=== PATIENT | male | born 1950 | race Caucasian/White ===

== ENCOUNTER 2022-12-09 08:32 | Day surgery (SDC) | payer MEDICARE, BC, SELFPAY ==
[2022-12-09] VITALS (35 sets, daily range): BP systolic 88–160; BP diastolic 61–99; PULSE 42–70; RESP 16–20; TEMP 35.9–36.4; O2SAT 93–99; BMI 24.6
[2022-12-09] MEDS: LACTATED RINGERS 1000 ML 1,000 ML 100 ML IV ×2 (09:20→13:27)
[2022-12-09] MEDS: SODIUM CHLORIDE 0.9 % (FLUSH) 10 ML SYRINGE IVF (09:32)
[2022-12-09] MEDS: OXYCODONE (CR) 10 MG TAB.ER.12H PO (10:45)
[2022-12-09] MEDS: ACETAMINOPHEN 500 MG TABLET 1000 MG PO ×2 (10:45→17:51)
[2022-12-09] MEDS: CELECOXIB 200 MG CAPSULE PO ×2 (10:45→21:21)
[2022-12-09] MEDS: fentaNYL 100 MCG/2 ML inj IVP (10:53)
[2022-12-09] MEDS: MIDAZOLAM HCL 1 MG/ML inj IVP (10:53)
--- NOTE | 2022-12-09 11:06 | SUR.PREOP ---
TIME?OUT:?1050 PT/RN/MDA?VERIFICATION?OF?SURGICAL?SITE Left Knee,?PROCEDURE Nerve Block,?AND?CONSENT OBTAINED?PRIOR?TO?INVASIVE?PROCEDURE.
--- NOTE | 2022-12-09 11:34 | P.NB_ITS ---
Nerve Block Nerve Block Time Seen by Provider: 11:59 Date Seen: 12/09/22 Type of block requested by surgeon for post-operative analgesia: adductor canal Side: left Time out performed: Yes Verification of patient name: Yes Verification of date of : Yes Site marking: site marked Name of person performing procedure: John Continuous monitoring Was continuous monitoring of O2 sat, B/P, phototypesetting equipment monitor, recorded every 15 minutes?: Yes Procedure Checklist: sterile prep, needles and gloves Ultrasound guided. Images saved: Yes Medications given in 5ml increments after negative aspiration: Ropivicaine %: 0.5 mL: 20 Needle gauge: 20 Decadron (mg): 10 Precedex (mcg): 25 Patient tolerated procedure well: Yes Additional comments: Needle noted adjacent to nerve Block Charges Block Charge (with Pro Fee): Femoral Nerve Use of Ultrasound Machine for Block: Yes- US Guidance/pain block
--- NOTE | 2022-12-09 11:35 | W.PM.NB ---
Nerve Block Nerve Block Time Seen by Provider: 11:59 Date Seen: 12/09/22 Type of block requested by surgeon for post-operative analgesia: geniculars Side: left Time out performed: Yes Verification of patient name: Yes Verification of date of : Yes Site marking: site marked Name of person performing procedure: John Continuous monitoring Was continuous monitoring of O2 sat, B/P, compliance monitor, recorded every 15 minutes?: Yes Procedure Checklist: sterile prep, needles and gloves Medications given in 5ml increments after negative aspiration: Ropivicaine %: 0.5 mL: 9 Needle gauge: 25 Patient tolerated procedure well: Yes Block Charges Block Charge (with Pro Fee): Genicular Nerve Block Use of Ultrasound Machine for Block: No
[2022-12-09] MEDS: CEFAZOLIN 2 GM INJ IVP (11:40)
[2022-12-09] MEDS: TRANEXAMIC ACID 100 MG/ML INJ 1000 MG IV (11:42)
--- NOTE | 2022-12-09 12:56 | CRLHL7_ITS ---
For Patients: As a result of the Cures Act, medical imaging exams and procedure reports are released immediately into your electronic medical record. You may view this report before your referring provider. If you have questions, please contact your health care provider. Indication: POST OP TKA LEFT KNEE Technique: Two views left knee Findings/Impression: Hardware from a left total knee arthroplasty is in satisfactory position. Bone alignment is normal. No sign of acute fracture. Postop changes are within normal limits. Dictated by Stephon Durham MD @ 12/10/2022 8:25:45 AM (Electronically Signed)
--- NOTE | 2022-12-09 12:58 | PM.ORPRC ---
Procedure Note Date of procedure: 12/09/22 Procedure: PREOPERATIVE DIAGNOSIS: Left knee osteoarthritis POSTOPERATIVE DIAGNOSIS: Left knee osteoarthritis NAME OF OPERATION: Left total knee arthroplasty SURGEON: Francois Siddiqi MD SALAD MAKER: Katherine Zhong PA-C ANESTHESIA: Spinal ESTIMATED BLOOD LOSS: 0 mL COMPLICATIONS: None SPECIMENS: None DRAINS: None PREOPERATIVE ANTIBIOTICS: Ancef 2 grams IMPLANTS: 1. J&J Attune # 8 posterior stabilized femur 2. # 8 fixed-bearing tibia 3. # 8 posterior stabilized, 5 mm fixed-bearing polyethylene 4. 41 patella INDICATIONS: The patient is a 72-year-old with a longstanding history of severe, unrelenting left knee pain secondary to end-stage (grade IV) left knee osteoarthritis. Despite appropriate nonoperative management, including activity modification, anti-inflammatories, lgjl-jmu-veljbck pain medication, bracing, physical therapy, and injections they continue to have pain and disability. Operative intervention was offered. The risks, benefits and expected outcomes were discussed in detail. These included but were not limited to: Infection, bleeding, injury to blood vessel or nerve, venous thromboembolism. All questions were answered to their satisfaction. Use of an ice cream freezer assistant was necessary throughout the case for patient positioning and safety, soft tissue retraction, and closure. PROCEDURE: Spinal anesthesia was administered. The patient was placed supine on the operating table. The ice cream freezer assistant made sure the patient was positioned appropriately. The lower extremity was prepped and draped in the usual sterile fashion. The limb was exsanguinated with the Elia bandage. The pneumatic tourniquet was inflated to 300 mmHg. A standard anterior incision was made with the knee in flexion. Subcutaneous dissection was sharply taken through fascial layer #1. Full-thickness medial and lateral flaps were elevated. The ice cream freezer assistant retracted the soft tissues and protected them throughout the case. A standard medial parapatellar approach was made. The patella was everted. The infrapatellar fat pad was preserved. The menisci and cruciate ligaments were sharply d?brided. Marginal osteophytes were d?brided with the rongeur. The drill was used to penetrate the femoral canal. The canal was aspirated and irrigated with pulse lavage. The intramedullary femoral guide was placed for a 5-degree valgus cut, removing 10 mm off the distal femur. The saw was used to make the cut. Whitesides line and the trans epicondylar axis were marked. The femoral sizing guide was pinned onto the distal femur. Three degrees of external rotation nicely parallels the transepicondylar axis. Pins were placed for posterior referencing. The four-in-one cutting guide was pinned onto the distal femur. The anterior, posterior, and chamfer cuts were made. The ice cream freezer assistant protected the collateral ligaments. The box cutting guide was pinned. The box cuts were made. The boxed trial was placed and was an excellent fit. Drill holes for the lugs were made. Attention was then turned to the proximal tibia. The extramedullary tibial guide was placed for a neutral varus/valgus cut with 5 degrees of posterior slope, removing 1 mm based off the medial tibial surface. The ice cream freezer assistant protected the collateral ligaments and the neurovascular bundle. The saw was used to make the cut. Trial components were placed. The knee was nicely balanced in both flexion and extension. The trial components were removed. The tray was placed in appropriate rotation, parallel to our tibial cutting pins. It was pinned by the ice cream freezer assistant and the drill and the punch were used. The tray was removed. The punch was used again. We placed a bone plug in the femoral canal. Attention was then turned to the patella. [place] patellar thickness was 22 mm. The lobster claw resection guide was used with the 9.5 mm jami. The saw was used to make the cut. Drill holes were made by the ice cream freezer assistant. The trial was placed and was an excellent fit. Cancellous surfaces were irrigated with pulse lavage and thoroughly dried by the ice cream freezer assistant. We cemented the tibial component, then the femoral component. We impacted the 5 mm polyethylene onto the tibial tray. The knee was brought into full extension. We then cemented the patellar component. Excessive cement was removed. The cement was allowed to harden. The knee was taken through a range of motion and was found to be nicely balanced in both flexion and extension. The patella tracks centrally. The ice cream freezer assistant did a three minute dilute Betadine solution soak. The ice cream freezer assistant irrigated the wound with 3 liters of normal saline via pulse lavage. The ice cream freezer assistant reapproximated the extensor mechanism with #1 Vicryl in an interrupted aomsyh-qu-tcaxs fashion. The ice cream freezer assistant then ran the extensor mechanism with a #1 PDO Stratafix. The ice cream freezer assistant closed the subcutaneous tissues with a 3-0 Stratafix and the skin with a running 3-0 Stratafix in a subcuticular fashion. Glue was used to seal the skin. The ice cream freezer assistant placed a dry dressing, ELENA stocking, and Polar Care. Sponge and needle counts were correct x2. The patient tolerated the procedure well. There were no apparent complications. They were carefully transferred to the hospital bed and taken to the postanesthesia care unit in satisfactory condition. PLAN: The patient will be mobilized with physical therapy. Aspirin will be used for DVT prophylaxis. They will be discharged to home once medically appropriate.
--- NOTE | 2022-12-09 13:40 | W.ANESCHARGE ---
Anesthesia Charges Start Date/Time Anesthesia Start Date: 12/09/22 Anesthesia Start Time: 11:30 Stop Date/Time Anesthesia Stop Date: 12/09/22 Anesthesia Stop Time: 13:39 Summary Emergency: No Extremes of Age: Over 68-CPT 61679
--- NOTE | 2022-12-09 13:54 | W.ANESCHARGE ---
Anesthesia Charges Start Date/Time Anesthesia Start Date: 12/09/22 Anesthesia Start Time: 11:30 Stop Date/Time Anesthesia Stop Date: 12/09/22 Anesthesia Stop Time: 13:39 Summary Emergency: No Extremes of Age: Over 68-CPT 37684
--- NOTE | 2022-12-09 14:42 | PM.IMCN1 ---
Date of Consult Consult date: 12/09/22 Primary Care Provider: Franco Kruger MD Consult Narrative Reason for consult: Medical management of comorbidities Narrative: Rayshawn Amador is a 72 year old male who presented to the hospital today for an elective L TKA. There were no surgical or anesthetic complications noted during procedure. Patient's H&P reviewed, PCP is Dr. Kruger. Past medical history significant for: Essential hypertension, hyperlipidemia, small ascending aortic dilatation on recent TTE. Patient is followed by Dr. Solomon of Cardiology as an outpatient. History of blood clots: No. Postoperative ppx with ASA per Orthopedic Surgery. Postoperative plan: Home with , lives locally. Patient is a nonsmoker, rare alcohol drinker. Retired from manufacturing. Review of Systems Status of ROS: Reports: 10 or more systems reviewed and unremarkable except as noted in History and below PFSH PFS Medical History (Updated 12/09/22 @ 14:53 by Ban Barillas MD) Enlarged aorta High cholesterol Hypertension Laceration of scalp Lumbago Peyronie disease Surgical History (Updated 12/09/22 @ 14:50 by Ban Barillas MD) History of tonsillectomy No significant past surgical history Status post left knee replacement (12/09/22) Social History Smoking Status: Never smoker Do you use any of these nicotine containing products: None How often do you have a drink containing alcohol: 2-3 times a week Alcohol type: beer How many standard drinks containing alcohol do you have on a typical day: 1 or 2 How often do you have six or more drinks on one occasion: Never AUDIT-C Alcohol total score: 3 Non-prescribed substance use: denies use Caffeine: Yes (coffee 5-6 cups per day) Meds Home Medications and Allergies Home Medications Medication Instructions Recorded Confirmed Type atorvastatin 40 mg tablet 40 mg PO HS 09/01/22 12/09/22 History lisinopril 10 mg tablet 10 mg PO DAILY 09/01/22 12/09/22 History multivitamin (Daily Multi-Vitamin 1 tab PO DAILY 12/01/22 12/09/22 History tablet) omega 9-rkg-cjs-fish oil 1,000 mg 1 cap PO TID 12/01/22 12/09/22 History (120 mg-180 mg) capsule (Fish Oil) Allergies Allergy/AdvReac Type Severity Reaction Status Date / Time No Known Drug Allergies Allergy Verified 12/09/22 08:46 Exam Narrative: Exam Narrative: GEN: Alert HEENT: EOMIs bilaterally, no scleral icterus CV: RRR, No concerning murmurs, rubs, or gallops R: LCTA bilaterally without concerning wheezing, rales, or rhonchi Skin: No concerning skin lesions or rashes on exposed skin Neuro: Nonfocal Psych: Appropriate Const: Vital Signs, click to edit/add: Vital Signs - 24 hr 12/09/22 09:02 12/09/22 10:50 12/09/22 10:55 Temperature 97.6 F Pulse Rate 66 62 60 Pulse Rate [Right Pulse Oximeter] Respiratory Rate 20 20 20 Blood Pressure 160/94 H 151/93 H 149/91 H Blood Pressure [Le ft Arm] Pulse Oximetry 98 99 99 Oxygen Delivery Me thod Room Air Nasal Cannula Nasal Cannula Oxygen Flow Rate 2 2 12/09/22 11:00 12/09/22 13:43 12/09/22 13:36 Temperature Pulse Rate 60 52 L Pulse Rate [Right Pulse Oximeter] Respiratory Rate 20 Blood Pressure 147/90 H Blood Pressure [Le ft Arm] Pulse Oximetry 99 96 Oxygen Delivery Me thod Nasal Cannula Room Air Oxygen Flow Rate 2 12/09/22 13:38 12/09/22 13:39 12/09/22 13:40 Temperature Pulse Rate 50 L 50 L 47 L Pulse Rate [Right Pulse Oximeter] Respiratory Rate Blood Pressure 88/61 L Blood Pressure [Le ft Arm] Pulse Oximetry 93 94 95 Oxygen Delivery Me thod Oxygen Flow Rate 12/09/22 13:41 12/09/22 13:42 12/09/22 13:44 Temperature Pulse Rate 47 L 49 L 50 L Pulse Rate [Right Pulse Oximeter] Respiratory Rate Blood Pressure 97/64 Blood Pressure [Le ft Arm] Pulse Oximetry 94 95 94 Oxygen Delivery Me thod Oxygen Flow Rate 12/09/22 13:46 12/09/22 13:47 12/09/22 13:48 Temperature Pulse Rate 48 L 48 L 48 L Pulse Rate [Right Pulse Oximeter] Respiratory Rate Blood Pressure 103/69 Blood Pressure [Le ft Arm] Pulse Oximetry 95 94 94 Oxygen Delivery Me thod Oxygen Flow Rate 12/09/22 13:50 12/09/22 13:51 12/09/22 13:52 Temperature Pulse Rate 62 56 L 44 L Pulse Rate [Right Pulse Oximeter] Respiratory Rate Blood Pressure 116/69 Blood Pressure [Le ft Arm] Pulse Oximetry 96 96 97 Oxygen Delivery Me thod Oxygen Flow Rate 12/09/22 13:54 12/09/22 14:28 12/09/22 14:28 Temperature 96.6 F L Pulse Rate 55 L Pulse Rate [Right Pulse Oximeter] 48 L Respiratory Rate 18 Blood Pressure Blood Pressure [Le ft Arm] 123/74 Pulse Oximetry 94 98 98 Oxygen Delivery Me thod Room Air Oxygen Flow Rate 12/09/22 14:33 12/09/22 14:15 12/09/22 14:15 Temperature 96.6 F L 96.6 F L Pulse Rate 55 L Pulse Rate [Right Pulse Oximeter] 49 L 48 L Respiratory Rate 18 18 18 Blood Pressure Blood Pressure [Le ft Arm] 138/82 123/74 138/82 Pulse Oximetry 97 98 Oxygen Delivery Me thod Room Air Room Air Room Air Oxygen Flow Rate 2 2 Assessment and Plan Assessment and plan (1) Status post left knee replacement: Problem comment: - 12/09/2022, Dr. Siddiqi Status: Acute (2) High cholesterol: Problem comment: - on statin, continue this postoperatively Status: Acute (3) Hypertension: Problem comment: - on lisinopril, continue this postoperatively Status: Acute (4) Enlarged aorta: Problem comment: - dilated on outpatient TTE - follows with Dr. Solomon as an outpatient, Blood Pressure management and repeat TTE 2023 recommended Status: Acute Assessment and Plan: - per above - pain management and prophylaxis per Orthopedic Surgery team - anticipate routine postoperative course with therapies and d/c home tomorrow
[2022-12-09] MEDS: CEFAZOLIN 1 GM in 0.9 % SODIUM CHLORIDE Mini-bag 100 ML IVPB (17:52)
--- NOTE | 2022-12-09 18:36 | PC.NURSE ---
End of shift. Pt has been pleasant. pain 0-3 and he got Po Tylenol with relief. he is up with 1 assist walker and GB. dressing is C/D/I cryo cuff to the knee. he is eating and drinking, no void so far. IV is patent. IS - 1999. teds and plexi are on. he is a fall risk and alarms are on. VSS.
[2022-12-09] MEDS: ASPIRIN 81 MG TABLET EC PO (21:21)
[2022-12-09] MEDS: SENNOSIDES 1 TAB TABLET 2 TAB PO (21:21)
--- NOTE | 2022-12-09 21:57 | PC.NURSE ---
19-23: Pt doing great post op only issue is voided 50cc, bladder scanned for 812, pt refused catheterization, pt wants us to wait until midnight and if unable to void will straight cath, will hold off narcotics at the moment, pain controlled 02/04, iv sl, po adeq.
[2022-12-10] MEDS: ACETAMINOPHEN 500 MG TABLET 1000 MG PO ×3 (00:12→12:25)
[2022-12-10] MEDS: CEFAZOLIN 1 GM in 0.9 % SODIUM CHLORIDE Mini-bag 100 ML IVPB ×2 (02:34→11:21)
[2022-12-10 02:50] VITALS: BP 126/68; PULSE 62; RESP 18; TEMP 36.4; O2SAT 95
[2022-12-10] MEDS: OXYCODONE 5 MG TABLET PO ×2 (06:31→12:25)
[2022-12-10 07:00] VITALS: BP 145/76; PULSE 55; RESP 16; TEMP 36.4; O2SAT 98
[2022-12-10 07:02] LABS: Hematocrit 37.8 % (37.0-53.0); Hemoglobin* 13.1 gm/dL (13.5-17.5); Immature Granulocytes Abs Auto 0.01 K/uL (0.00-0.30); Immature Granulocytes Pct Auto 0.1 %; Lymphocytes Percent Auto 7.4 % (20-44); Mean Corpuscular HGB Conc 35 gm/dL (32-36); Mean Corpuscular Hemoglobin 30 pg (26-34); Mean Corpuscular Volume 87 fL (80-100); Neutrophils Percent Auto 84.5 % (42.0-72.0); Platelet Count* 243 K/uL (140-440); RDW Coefficient of Variation % 12.9 % (11.5-15.5); Red Blood Count 4.35 m/uL (4.30-5.90); White Blood Count* 10.27 K/uL (4.50-11.00)
[2022-12-10 07:09] LABS: Slide Review Reflex No
[2022-12-10 07:19] LABS: Prothrombin Time 14.8 Seconds
[2022-12-10 07:22] LABS: Potassium* 4.3 mmol/L (3.6-5.1); Sodium* 138 mmol/L (135-149)
[2022-12-10 07:25] LABS: Blood Urea Nitrogen* 17 mg/dL (7-30); Creatinine* 0.7 mg/dL (0.5-1.5); Estimated Glomerular Filt Rate 97 ml/min
--- NOTE | 2022-12-10 08:26 | PM.ORPN ---
Subjective Subjective Time Seen by Provider: 08:05 Date Seen: 12/10/22 Principal diagnosis: Day 1 s/p left total knee arthroplasty Interval history: Rayshawn is doing well this morning and is resting comfortably in his recliner. Patient c/o mild left knee pain worse at night. Pain is well managed with current scheduled and PRN oral pain medications and ice. Denies: fever, chills, chest pain, SOB, numbness/tingling distally. Also c/o trouble sleeping. Patient has not yet been seen by PT/OT. Patient feels ready to be discharged to home later this afternoon. No acute events over night. Ortho Exam Narrative Exam Narrative: Incision/Dressing: Dressing appears clean and dry. No drainage present. Mepilex intact. Left knee appears moderately swollen but supple with no obvious erythema, fluctuance or excessive warmth. No ecchymosis or erythematous streaking. Warmth around the wound is appropriate. Ice is being utilized as needed. CMS: Intact distally with 2+ Dorsalis pedis and Posterior Tibial pulses. 5/5 motor strength dorsal and plantar flexion. Confirmed sensation distally. Intact straight leg raise. Calf: Bilateral calves are supple, with no swelling, pain, tenderness, erythema, discoloration or coolness to the touch. Constitutional: Patient is alert and oriented x3. Patient is in no acute distress and converses without labored breathing. Patient is able to make decisions and demonstrates good insight. Patient is pleasant and cooperative. Affect is full range and appropriate for the circumstances. Const Vital Signs, click to edit/add: Vital Signs - 24 hr 12/09/22 09:02 12/09/22 10:50 12/09/22 10:55 Temperature 97.6 F Pulse Rate 66 62 60 Pulse Rate [Left Pulse Oximeter] Pulse Rate [Right Pulse Oximeter] Respiratory Rate 20 20 20 Blood Pressure 160/94 H 151/93 H 149/91 H Blood Pressure [Left Arm] Pulse Oximetry 98 99 99 Oxygen Delivery Method Room Air Nasal Cannula Nasal Cannula Oxygen Flow Rate 2 2 12/09/22 11:00 12/09/22 13:43 12/09/22 13:36 Temperature Pulse Rate 60 52 L Pulse Rate [Left Pulse Oximeter] Pulse Rate [Right Pulse Oximeter] Respiratory Rate 20 Blood Pressure 147/90 H Blood Pressure [Left Arm] Pulse Oximetry 99 96 Oxygen Delivery Method Nasal Cannula Room Air Oxygen Flow Rate 2 12/09/22 13:38 12/09/22 13:39 12/09/22 13:40 Temperature Pulse Rate 50 L 50 L 47 L Pulse Rate [Left Pulse Oximeter] Pulse Rate [Right Pulse Oximeter] Respiratory Rate Blood Pressure 88/61 L Blood Pressure [Left Arm] Pulse Oximetry 93 94 95 Oxygen Delivery Method Oxygen Flow Rate 12/09/22 13:41 12/09/22 13:42 12/09/22 13:44 Temperature Pulse Rate 47 L 49 L 50 L Pulse Rate [Left Pulse Oximeter] Pulse Rate [Right Pulse Oximeter] Respiratory Rate Blood Pressure 97/64 Blood Pressure [Left Arm] Pulse Oximetry 94 95 94 Oxygen Delivery Method Oxygen Flow Rate 12/09/22 13:46 12/09/22 13:47 12/09/22 13:48 Temperature Pulse Rate 48 L 48 L 48 L Pulse Rate [Left Pulse Oximeter] Pulse Rate [Right Pulse Oximeter] Respiratory Rate Blood Pressure 103/69 Blood Pressure [Left Arm] Pulse Oximetry 95 94 94 Oxygen Delivery Method Oxygen Flow Rate 12/09/22 13:50 12/09/22 13:51 12/09/22 13:52 Temperature Pulse Rate 62 56 L 44 L Pulse Rate [Left Pulse Oximeter] Pulse Rate [Right Pulse Oximeter] Respiratory Rate Blood Pressure 116/69 Blood Pressure [Left Arm] Pulse Oximetry 96 96 97 Oxygen Delivery Method Oxygen Flow Rate 12/09/22 13:54 12/09/22 14:28 12/09/22 14:28 Temperature 96.6 F L Pulse Rate 55 L Pulse Rate [Left Pulse Oximeter] Pulse Rate [Right Pulse Oximeter] 48 L Respiratory Rate 18 Blood Pressure Blood Pressure [Left Arm] 123/74 Pulse Oximetry 94 98 98 Oxygen Delivery Method Room Air Oxygen Flow Rate 12/09/22 14:33 12/09/22 14:15 12/09/22 14:15 Temperature 96.6 F L 96.6 F L Pulse Rate 55 L Pulse Rate [Left Pulse Oximeter] Pulse Rate [Right Pulse Oximeter] 49 L 48 L Respiratory Rate 18 18 18 Blood Pressure Blood Pressure [Left Arm] 138/82 123/74 138/82 Pulse Oximetry 97 98 Oxygen Delivery Method Room Air Room Air Room Air Oxygen Flow Rate 2 2 12/09/22 14:45 12/09/22 15:09 12/09/22 15:09 Temperature 96.6 F L Pulse Rate Pulse Rate [Left Pulse Oximeter] Pulse Rate [Right Pulse Oximeter] 50 L 44 L Respiratory Rate 18 16 Blood Pressure Blood Pressure [Left Arm] 141/81 H 135/92 H Pulse Oximetry 96 99 99 Oxygen Delivery Method Room Air Room Air Oxygen Flow Rate 12/09/22 15:00 12/09/22 15:15 12/09/22 15:45 Temperature Pulse Rate Pulse Rate [Left Pulse Oximeter] Pulse Rate [Right Pulse Oximeter] 44 L 42 L 47 L Respiratory Rate 16 16 16 Blood Pressure Blood Pressure [Left Arm] 135/92 H 141/79 H 152/76 H Pulse Oximetry 99 97 98 Oxygen Delivery Method Room Air Room Air Room Air Oxygen Flow Rate 12/09/22 16:05 12/09/22 16:40 12/09/22 17:15 Temperature 97.0 F L Pulse Rate Pulse Rate [Left Pulse Oximeter] Pulse Rate [Right Pulse Oximeter] 44 L 58 L 60 Respiratory Rate 16 16 16 Blood Pressure Blood Pressure [Left Arm] 156/84 H 149/75 H 124/75 Pulse Oximetry 97 95 98 Oxygen Delivery Method Room Air Room Air Room Air Oxygen Flow Rate 2 12/09/22 17:45 12/09/22 18:15 12/09/22 18:45 Temperature Pulse Rate Pulse Rate [Left Pulse Oximeter] Pulse Rate [Right Pulse Oximeter] 64 66 66 Respiratory Rate 18 16 18 Blood Pressure Blood Pressure [Left Arm] 122/99 H 114/65 119/66 Pulse Oximetry 98 97 97 Oxygen Delivery Method Room Air Room Air Room Air Oxygen Flow Rate 12/09/22 19:00 12/09/22 20:31 12/09/22 23:00 Temperature 97.0 F L Pulse Rate Pulse Rate [Left Pulse Oximeter] Pulse Rate [Right Pulse Oximeter] 70 Respiratory Rate 18 Blood Pressure Blood Pressure [Left Arm] 95/70 119/69 Pulse Oximetry 97 97 Oxygen Delivery Method Room Air Oxygen Flow Rate 12/09/22 23:00 12/09/22 23:00 12/10/22 02:50 Temperature 97.4 F L 97.5 F L Pulse Rate Pulse Rate [Left Pulse Oximeter] Pulse Rate [Right Pulse Oximeter] 63 63 62 Respiratory Rate 18 18 18 Blood Pressure Blood Pressure [Left Arm] 147/90 H 126/68 Pulse Oximetry 97 95 Oxygen Delivery Method Room Air Room Air Oxygen Flow Rate 12/10/22 07:00 12/10/22 07:00 Temperature 97.6 F Pulse Rate Pulse Rate [Left Pulse Oximeter] 55 L Pulse Rate [Right Pulse Oximeter] Respiratory Rate 16 Blood Pressure Blood Pressure [Left Arm] 145/76 H Pulse Oximetry 98 98 Oxygen Delivery Method Room Air Oxygen Flow Rate Documenting provider has reviewed patient's vital signs: yes Assessment and Plan Assessment and plan (1) Status post left knee replacement: Problem details: - 12/09/2022, Dr. Siddiqi Status: Acute Assessment and Plan: - Complete 23 hour perioperative antibiotics. - PT/OT consults for education and assistance. - Social consult for discharge planning. - Weight bear as tolerated. - DVT prophylaxis includes: aspirin 81 mg BID x 1 month. Also bilateral knee high Darius stockings (x 1 month), frequent ambulation and ankle pumps when sedentary. - Anticipate patient will be discharged to home this afternoon if the patient remains medically stable, pain is controlled and is safe with ambulation. - Patient will require outpatient physical therapy. - Recommend OTC melatonin for trouble sleeping. - Return to clinic in 1 week for a wound check. Mepilex dressing will be removed at this appointment. Remove sooner if dressing becomes saturated. - Return to clinic in [address] Siddiqi. - Prescribed analgesics as needed. Patient is content with current narcotic medications. Minimize narcotic pain medication use; wean off and discontinue as soon as possible. - Phone Orthopedics with any questions or concerns. (2) High cholesterol: Problem details: - on statin, continue this postoperatively Status: Acute (3) Hypertension: Problem details: - on lisinopril, continue this postoperatively Status: Acute (4) Enlarged aorta: Problem details: - dilated on outpatient TTE - follows with Dr. Solomon as an outpatient, Blood Pressure management and repeat TTE 2023 recommended Status: Acute
[2022-12-10] MEDS: SENNOSIDES 1 TAB TABLET 2 TAB PO (09:24)
[2022-12-10] MEDS: ASPIRIN 81 MG TABLET EC PO (09:24)
[2022-12-10] MEDS: CELECOXIB 200 MG CAPSULE PO (09:24)
--- NOTE | 2022-12-10 14:42 | PC.NURSE ---
Discharge-- Very pleasant and cooperative, alert and oriented patient discharged to home via wheelchair with at approximately 1330. VSS and pt is afebrile. SPO2 maintained >90% on RA. Pain appears well managed with Tylenol and Oxycodone. Dressing to left knee C/D/I and CMS WNL. Left knee noted to be swollen. Cryocuff in place. LS CTA. Pt denied nausea, ate 100% of a regular diet without difficulty and had a continent BM this afternoon. He was up to the BR and chair with SBA, belt and walker and tolerated it well. Discharge education was provided including diagnosis info, symptoms to report, medications and follow up plan. No further questions asked. SL was removed with tip intact.
== END 2022-12-10 13:30 | disposition home or self-care (01) ==
LOC: OR 09:10 → MEDSURG 09:12
PROVIDERS: PCP Family Medicine; Visit Provider Orthopaedic Surgery
PROC: (CPT 27447; principal; 2022-12-09 11:15)
DX: M17.12 Unilateral primary osteoarthritis, left knee (principal); M25.562 Pain in left knee; G89.18 Other acute postprocedural pain; I10 Essential (primary) hypertension; E78.00 Pure hypercholesterolemia, unspecified; I77.819 Aortic ectasia, unspecified site
CPT/HCPCS: 27447; 01402; 36415; 51798; 64447; 64454; 73560; 76942; 82565; 84132; 84295; 84520; 85025; 85610; 97110; 97116; 97161; 97165; 99100; A9270; C1776; J0690; J1100; J2250; J2405; J2704; J2795; J3010; J7120

== ENCOUNTER 2023-02-07 10:00 | Outpatient (RCR) | payer MEDICARE, BC, SELFPAY ==
--- NOTE | 2022-11-30 15:21 | PT.OPEX ---
PT [place] Outpatient Eval PT [facility] Outpatient Eval Start: 11/30/22 10:58 Freq: Status: Active Protocol: Document 11/30/22 10:59 VIPUL (Rec: 11/30/22 12:00 VIPUL [id number]) E-signed By Issa Joseph PT Physical Therapy Outpatient Evaluation Insurance Information Insurance Name Medicare B,Blue Cross/Blue [employer] Medical Diagnosis Left knee OA Treating Diagnosis Left knee pain Decreased left knee ROM and strength Referring MD Siddiqi Subjective Subjective Pt. reports having chronic left knee pain from progressive OA which has led to upcoming TKA surgery next week. He lives with his who has been through 2 TKA surgeries already. He lives in a ranch style one level home with both the bathroom and bedroom on first floor. He has a few steps getting into home with railings. He has grab bars in bathroom and he already has a walker and a cane. PMH includes; enlarged aorta, HTN, and OA. Pain Comments 4 Date of Last Physician Visit 09/06/22 Date of Surgery (If applicable) 12/07/22 Current Work Status Retired Preferred Name Rayshawn Objective Range of Motion 5-130 left knee Strength 4/5 quad Swelling mild Assessment Assessment/Impression Objectively, pt. demonstrates; 5-130 degrees of left knee ROM; 4/5 left quad strength; moderate limp during ambulation without assistive device due to pain; mild left knee swelling; and normal upper body strength and right LE strength for his age. He would benefit from skilled therapy for pre-op education and then skilled therapy following his TKA surgery next week. Primary Functional Limitations Walking, steps, squatting Plan of Care Rehabilitation Potential Excellent Physical Therapy Goals 1. Pt. will be indep. with HEP for self maintenance in 10 weeks. 2. Pt. will be able to walk without a limp in 10 weeks. 3. Pt. will demonstrate improved quad and core strength to WFL in 10 weeks. 4. Pt. will demonstrate functional knee AROM to allow regular ADL's in 10 weeks. Coordination/Communication With Referral Source Treatment Plan/Direct Interventions Gait Training,Ice/Cold/ Vasopneumatic,Joint Mobilization,Manual Therapy, Neuromuscular Re-ed,Self-Care/ Home Management,Therapeutic Exercises Frequency/Duration RE-eval on 12/10/22, then see 2 times a week for 8 weeks. Patient Will Be Discharged From Therapy Independent w/HEP, Independently Progressing Evaluation Billing Complexity Low Certification Information Initial Certification Date 11/30/22 Ending Certification Date 02/22/23 Provider Signature Shows Agreement With POC & Medical Necessity Physician Signature & Date Requested Please Sign/Date Here Physician Comment/Change : Physician NPI Number #
--- NOTE | 2022-12-14 14:13 | PT.OPDNX ---
PT [facility] Daily Note PT [facility] Outpatient Daily Note Start: 11/30/22 10:58 Freq: Status: Active Protocol: Document 12/14/22 09:02 ENM (Rec: 12/14/22 11:20 ENM [id number]) E-signed By Merissa Aj DPT PT OP Daily Progress Note Visit Information Note Type Re-Evaluation Visit Number 2 Insurance Information Recert Due Date 02/22/23 Insurance Name Medicare B,[employer] Medical Diagnosis Left knee OA Treating Diagnosis Left knee pain Decreased left knee ROM and strength Referring MD Siddiqi Subjective Subjective Patient presents to PT 1 week s/p L TKA DOS 12/09/21. Surgery was initially supposed to be on the but was moved to the . Initially pain was significant but now it is manageable, is taking 2 ibuprofen and an oxy every 6 hours. Was originally taking them every 4 hours. He is icing and doing his exercises regularly (2x a day). He has been using a 2WW to get around , reports no difficulties with navigating home environment. Tried the cane yesterday which went well. The most difficult thing has been lifting his leg. He feels really good when he is walking. PMH includes; enlarged aorta, HTN, and OA. Pain Comments at its worse: 4-5/10 at its best:2-3/10 Preferred Name Rayshawn Home Exercise Home Exercise Comments post op exercises: ankle pumps , QS, HS, SAQ, LAQ, SLR, knee ext stretch, heel slides Objective Other/Pertinent Objective Knee ROM L 0-3-88 R 0-4-135 strength: good quad set SLR performed with ~20 deg extensor lag 5x STS with use of arms 23.70s gait/balance: Patient ambulating with 2WW, slight left lean, decreased knee extension on the left side throughout gait cycle, not heavily relying on walker for support, even step length with good pace swelling/observation: light bruising medial joint line, moderate bruising lateral joint line and posterior thigh bandaging in place over incision superior patella: L 43.6 R 35. 6 mid patella: L 42 R 37 inf patella: L 39.2 R 33.5 Other: patient having to hook RLE under left to perform supine<>sit Patient Instructed in Risks/Benefits Yes Therapeutic Exercise Therapeutic Exercise Minutes (minutes) 30 Therapeutic Exercise: To Restore -quad set 10x5s holds Functional Status -SAQ 10x5s hold, Nica to complete range -SLR x10, VC for knee ext patient with ~20 deg lag when performing -heel slides x10 therapist assist, x5 with strap assist -standing marches at counter x10B -standing heel raises at counter x10 -knee ext stretch with bolster under heel x2 mins Reinforced importance of icing and elevation. Issued level E tubigrip to help with swelling management *added standing marches and heel raises to home program Treatment Minutes Untimed Code Treatment Minutes 20 Timed Code Treatment Minutes 30 Total Treatment Time 50 Billing Units Therapeutic Exercise Units 2 Re-Evaluation Units 1 Assessment/Impression Assessment/Impression Patient returns to PT for evaluation after L TKA DOS 11/18 performed by . His pains have been tolerable with patient being consistent with exercises, pain management and icing. They have been navigating home environment well with use of 2WW. Their main difficulty is being able to lift the left leg. Upon assessment patient displays decreased knee ROM, impaired gait, impaired transfers, decreased quad strength and swelling. Impairments consistent with s/ p TKA. Patient would benefit from skilled PT to address impairments stated above in order to perform all functional and recreational activities without significant difficulty or discomfort post operatively. Plan of Care Physical Therapy Goals 1. Pt. will be indep. with HEP for self maintenance in 10 weeks. 2. Pt. will be able to walk without a limp in 10 weeks. 3. Pt. will demonstrate improved quad and core strength to WFL in 10 weeks. 4. Pt. will demonstrate functional knee AROM to allow regular ADL's in 10 weeks. Daily Plan of Care Continue per POC
== END 2023-02-07 14:28 | disposition home or self-care (01) ==
PROVIDERS: PCP Family Medicine; Visit Provider Orthopaedic Surgery
DX: M17.12 Unilateral primary osteoarthritis, left knee (principal); Z51.89 Encounter for other specified aftercare
CPT/HCPCS: 97110; 97112; 97140; 97161; 97164; 97530